=== PATIENT | male | born 1940 | race Caucasian/White ===

== ENCOUNTER 2018-04-25 13:51 | Outpatient (CLI) | payer MEDICARE ==
--- NOTE | 2018-04-25 15:49 | MRI ---
MRI LUMBAR SPINE WITHOUT CONTRAST: COMPARISON: 10/10/16. CORRELATION: Lumbar spine radiograph series 01/25/17. TECHNIQUE: MRI lumbar spine is performed without intravenous Gadolinium administration. Multisequential, multip lanar imaging is performed. FINDINGS: Intrinsic T1 and T2 hypointensity involving the L1 and L2 vertebral bodies compatible with vertebropl asty change. Mild loss of vertebral body height at L1 and L2. No significant retropulsion. No sign ificant edema on the sagittal STIR sequence. There is appropriate signal intensity of the L3, L4, an d L5 vertebral body levels as well as the visualized sacrum. Symmetric signal intensity of the psoas muscles. Appropriate signal intensity in the visualized javy d organs. Conus medullaris terminates at the upper aspect of L1. T12-L1: Adequate disk hydration. No significant central canal stenosis or foraminal narrowing. L1-L2: Adequate disk hydration. No significant central canal stenosis or foraminal narrowing. L2-L3: Adequate disk hydration. No significant central canal stenosis. The neural foramen are avila nt. Mild ligamentum flavum thickening and facet hypertrophy. L3-L4: Adequate disk hydration. No significant central canal stenosis. Neural foramen are patent. L4-L5: Adequate disk hydration. There is a generalized disk bulge, ligamentum flavum thickening, an d facet hypertrophy which results in mild to moderate central canal stenosis. The degree of central canal stenosis has not changed when compared to the previous examination. Right neural foramen is pa tent. Minimal left neural foraminal narrowing. L5-S1: Central disk protrusion abuts the thecal sac. There is minimal encroachment upon both subart icular zones. No significant obscuration or other traversing S1 nerve root. There is mild central c anal stenosis. Mild bilateral foraminal narrowing. The overall degree of degenerative change has no t progressed when compared to the prior exam. S1-S2: No significant central canal stenosis or foraminal narrowing. Note, there appears to be partial lumbarization of S1. IMPRESSION: 1. 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 2. Vertebroplasty change at L1-L2 compatible with recent radiograph performed in January of 2017. POS: [facility]
== END 2018-04-25 13:52 | disposition home or self-care (01) ==
LOC: BICMRI 13:51
PROVIDERS: ATTEND Anesthesiology Pain Medicine
DX: M47.26 Other spondylosis with radiculopathy, lumbar region (principal); Z98.890 Other specified postprocedural states
CPT/HCPCS: 72148

== ENCOUNTER 2018-12-04 12:06 | Outpatient (CLI) | payer MEDICARE ==
--- NOTE | 2018-12-04 15:49 | PET ---
EXAM: PET/CT HISTORY: Melanoma face, right cheek. Exam requested for initial staging TECHNIQUE: PET scanning with CT attenuation correction was performed from the vertex to the feet following the i ntravenous administration of 13 millicuries [id number]. COMPARISON: None. CORRELATION: None FINDINGS: No mandie hypermetabolism is seen in the neck, chest, axillae, abdomen, pelvis, inguinal, femoral and popliteal regions. No hypermetabolic pulmonary nodules, liver, adrenal or skeletal lesions are seen. There is physiologic activity in the GI and tracts and the visualized portions of the brain. The CT scan used for attenuation correction demonstrates no evidence of pleural effusions or ascites. There are changes of prostatic enlargement and colonic diverticulosis. IMPRESSION: No evidence of metastatic disease.
== END 2018-12-04 12:07 | disposition home or self-care (01) ==
LOC: PET 12:06
PROVIDERS: ATTEND Internal Medicine Hematology & Oncology
DX: C43.39 Malignant melanoma of other parts of face (principal)
CPT/HCPCS: 78816; A9552

== ENCOUNTER 2018-12-17 12:57 | Outpatient (CLI) | payer MEDICARE ==
--- NOTE | 2018-12-17 14:45 | MRI ---
MRI LUMBAR SPINE NONCONTRAST: HISTORY: Neurogenic claudication. Lumbar stenosis. Previous injury to the back. Previous L1 and L2 compression fracture. Melanoma. COMPARISON: 04/25/2018 FINDINGS: Based on the previous examination, the spine will be labeled such that the vertebroplasty has occurre d at L1 and L2. There is stable marrow signal intensity in the lumbar spine. No evidence of hyperintensity on the STIR images to suggest vertebral body edema or ligamentous injury. There have b een no interval fractures. Stable vertebral body heights. Symmetric signal intensity of the paraspinal muscles. Appropriate signal intensity of the visualized solid organs. Conus medullaris terminates at the mid L1 level T12-L1:No significant central canal stenosis or neural foraminal narrowing L1-L2:Mild generalized disc bulge without significant central canal stenosis. Mild bilateral foramina l narrowing L2-L3:Adequate disc hydration. Minimal generalized disc bulge. Questionable small annular fissure in the left subarticular region. No significant central canal stenosis. Mild ligament flavum thickening and facet hypertrophy. Mild bilateral neural foraminal narrowing. L3-L4:Adequate disc hydration. No significant central canal stenosis. Neural foramina are patent bila terally L4-L5:Adequate disc hydration. Generalized disc bulge, ligament flavum thickening and facet hypertrop hy result in moderate central canal stenosis. Right neural foramen is patent. Mild left neural foraminal narrowing L5-S1:Desiccation with mild loss of disc space height. There is a central/right subarticular disc pro trusion. Small annular tear suspected in the disc, along the right subarticular zone. This annular tear appears to be adjacent to the traversing right S1 nerve root. IMPRESSION: 1. Stable vertebroplasty change at L1 and L2. 2. Multilevel degenerative changes of the lumbar spine. There appears to be interval development of a n annular fissure at L5-S1 and L2-L3 as described above. Annular fissure does appear to abut the traversing right S1 nerve root. Transcribed Date/Time: 12/17/2018 3:05 PM
== END 2018-12-17 12:58 | disposition home or self-care (01) ==
LOC: SCSMRI 12:57
PROVIDERS: ATTEND Anesthesiology Pain Medicine
DX: M48.062 Spinal stenosis, lumbar region with neurogenic claudication (principal); M47.816 Spondylosis without myelopathy or radiculopathy, lumbar region; Z98.890 Other specified postprocedural states
CPT/HCPCS: 72148

== ENCOUNTER 2020-01-29 07:30 | Outpatient (CLI) | payer MEDICARE, OTHER ==
[2020-01-30 13:07] LABS: SARS-CoV-2 MS2 Positive; SARS-CoV-2 N Gene Negative; SARS-CoV-2 S Gene Negative; SARS-CoV-2 orf1ab Negative
== END 2020-01-29 07:31 | disposition home or self-care (01) ==
LOC: LABBT 07:30
PROVIDERS: ATTEND Anesthesiology Pain Medicine
DX: Z01.818 Encounter for other preprocedural examination (principal); Z11.59 Encounter for screening for other viral diseases; M54.16 Radiculopathy, lumbar region; M96.1 Postlaminectomy syndrome, not elsewhere classified; G89.29 Other chronic pain
CPT/HCPCS: 87635; U0003

== ENCOUNTER 2020-02-02 11:51 | Day surgery (SDC) | payer MEDICARE ==
[2020-01-28 09:50] VITALS: BMI 28.0
[2020-02-02] MEDS ORDERED: CEFAZOLIN 1 GM VIAL ONE (12:10)
[2020-02-02] MEDS ORDERED: Sodium Chloride 0.9% 100 ML ONE (12:10)
[2020-02-02] MEDS ORDERED: Propofol 1,000 MG/100 ML VIAL IV ONE (12:21)
[2020-02-02] MEDS ORDERED: Fentanyl 100 MCG/2 ML VIAL ONE (12:21)
[2020-02-02] MEDS ORDERED: Lidocaine 1% w/Epinephrine 1:100K 20 ML VIAL ONE (13:30)
[2020-02-02] MEDS ORDERED: Bupivacaine PF 0.5% 30 ML VIAL ONE (13:30)
[2020-02-02] MEDS ORDERED: Morphine 2 MG/ML SYRINGE ONE (15:37)
--- NOTE | 2020-02-02 16:36 | RAD ---
Thoracic spine intraoperative fluoroscopy one view HISTORY: Dorsal column stimulator placement. FINDINGS: Intraoperative fluoroscopy was provided for dorsal column stimulator placement as performed by Dr. Zacarias. Spot frontal image shows 2 metallic leads overlying the midline central spinal canal at the level of the mid thoracic spine. Fluoroscopy time 49 seconds.
--- NOTE | 2020-02-02 21:15 | OP ---
DATE OF PROCEDURE: 02/02/2020 PREOPERATIVE DIAGNOSES: 1. Postlaminectomy syndrome. 2. Chronic lumbar radiculopathy. 3. Chronic pain. POSTOPERATIVE DIAGNOSES: 1. Postlaminectomy syndrome. 2. Chronic lumbar radiculopathy. 3. Chronic pain. PROCEDURES: 1. Implantation of a right spinal cord stimulation electrode array, eight contacts. 2. Implantation of a left spinal cord stimulation electrode array, eight contacts. 3. Implantation of internal pulse generator. 4. Intraoperative programming. 5. Implantation of programming of internal pulse generator. ANESTHESIA: TIVA. COMPLICATIONS: None. BLOOD LOSS: Less than 20 mL. DESCRIPTION OF PROCEDURE: Risks and benefits were discussed. Informed consent was obtained, was taken to the OR, prepped and draped in a standard fashion, prone position, Hibiclens prep, fluoroscopic guidance to identify the thoracolumbar interspaced, L1-L2 interspace chosen. Incision carried down using blunt dissection to the supraspinous ligament L1-L3, supplied Touhy needle, loss of resistance technique, one pass, no paresthesia, CSF, or heme. Using a left and right paramedian approach, electrodes were then placed in the epidural space over the dorsal columns with the most cephalad electrode at the superior endplate of T7 and a second electrode placed to allow parallel with the first, intraoperative programming, achieved appropriate back and bilateral leg stimulation concordant and overlapping with the patient's pain pattern. Multiple electrode array, pulse width and frequencies were utilized. Attention was then turned to the right buttocks. After adequate local anesthesia, incision was made down to the fascia. Fascia was undermined to make a pocket. The IPG was placed in the pocket. Tunneling was accomplished between incisions using the straw tunneler. Leads were passed through the straw. Straw was removed. Leads were connected to the IPG. Set screws were tightened using the ratcheted screwdriver and IPG was placed in the pocket, riding side out. All counts were correct x2. Closure was accomplished in layers using 0 Vicryl, 2-0 Vicryl, and 4-0 Rapide for the skin. Dermabond was also used for the skin. There were no complications. The patient tolerated the procedure well. Job ID: [id number]
--- NOTE | 2020-02-03 18:11 | EKG ---
Test Reason : PREOP Blood Pressure : / mmHG Vent. Rate : 071 BPM Atrial Rate : 071 BPM P-R Int : 148 ms QRS Dur : 126 ms QT Int : 420 ms P-R-T Axes : 045 013 010 degrees QTc Int : 456 ms Normal sinus rhythm Right bundle branch block Abnormal ECG When compared with ECG of 15-JUL-2007 16:55, Premature atrial complexes are no longer Present Confirmed by BHUMI BECK (2) on 02/03/2020 6:10:50 PM Referred By: DIMITRIOS Confirmed By:BHUMI BECK
== END 2020-02-02 16:35 | disposition home or self-care (01) ==
LOC: SDC 11:51
PROVIDERS: ATTEND Anesthesiology Pain Medicine
PROC: 0JH70DZ Insertion of Multiple Array Stimulator Generator into Back Subcutaneous Tissue and Fascia, Open Approach (ICD-10-PCS; principal; 2020-02-02)
PROC: 00HU3MZ Insertion of Neurostimulator Lead into Spinal Canal, Percutaneous Approach (ICD-10-PCS; 2020-02-02)
DX: M96.1 Postlaminectomy syndrome, not elsewhere classified (principal); M54.16 Radiculopathy, lumbar region; G89.4 Chronic pain syndrome; E11.9 Type 2 diabetes mellitus without complications; I10 Essential (primary) hypertension; E03.9 Hypothyroidism, unspecified; F32.9 Major depressive disorder, single episode, unspecified; N40.0 Benign prostatic hyperplasia without lower urinary tract symptoms; E78.5 Hyperlipidemia, unspecified; F41.9 Anxiety disorder, unspecified; Z79.84 Long term (current) use of oral hypoglycemic drugs; Z79.899 Other long term (current) drug therapy
CPT/HCPCS: 63650 ×2; 63685; 72020; 76000; 93005; C1767; C1778; 93010; J0690; J2270; J2704; J3010; J3490; S0020

== ENCOUNTER 2020-05-26 13:32 | Outpatient (CLI) | payer MEDICARE ==
--- NOTE | 2020-05-26 15:37 | CT ---
Neck CT: 05/26/2020 COMPARISON: None HISTORY: Mass on the right "under the chin" TECHNIQUE: Axial CT imaging obtained at 3 mm intervals through the neck with IV contrast. Coronal and sagittal reformatted imaging obtained. FINDINGS: Partially imaged brain parenchyma grossly unremarkable. Imaged paranasal sinuses and mastoid air cells well-aerated. Visualized lung apices unremarkable. The retroantral fat and the parapharyngeal fat appears clear bilaterally. A right scleral band is pre sent. The parotid glands and the submandibular glands appear unremarkable. The tonsillar pillars, the epigl ottis and preepiglottic fat, the hyoid bone, the thyroid cartilage, the cricoid cartilage, the thyroid gland, and the level of the glottis appears unremarkable. Dental amalgam limits detailed assessment of the oral cavity. There is a needle cap marking the area of palpable concern which is in a midline location anterior to the hyoid bone and thyroid cartilage. No mass, fluid collection, or enlarged lymph node is seen in the area of palpable concern. Vascular structures of the neck appear patent. No enlarged lymph nodes are noted within the neck on e ither side. Review of the osseous structures demonstrates no worrisome lytic or blastic bone lesion. IMPRESSION: No CT abnormality is seen in the area of palpable concern marked on the patient's skin.
== END 2020-05-26 13:33 | disposition home or self-care (01) ==
LOC: BICCT 13:32
PROVIDERS: ATTEND Otolaryngology Otolaryngic Allergy
DX: R22.1 Localized swelling, mass and lump, neck (principal)
CPT/HCPCS: 70491

== ENCOUNTER 2020-08-25 09:42 | Outpatient (CLI) | payer MEDICARE ==
--- NOTE | 2020-08-25 10:43 | CT ---
CTA Angio Chest W WO Con 08/25/2020 9:45 AM Indication: 80-year-old male with shortness of breath and history of DVT Technique: Multiple CTA images were obtained of the thorax with IV contrast. 3-D rendering: MIP neela nstructed images were created and reviewed. Comparison: Prior PET/CT dated December 04, 2018 Findings: Pulmonary arteries: No central or segmental pulmonary embolus is evident. Heart and Aorta: Normal appearing. Mediastinum:Normal appearing. No enlarged lymph nodes. Lungs:There is persistent areas of subsegmental volume loss involving both lung bases, right greater than left Pleural space: Clear. Upper Abdomen: There is partial resolution right hepatic lobe cyst. Osseous Structures: There is partial visualization of a dorsal column stimulator. There is vertebrop lasty change at T10. Soft tissues:No abnormality. Other findings:None. Impression: No central or segmental pulmonary embolus.
== END 2020-08-25 09:43 | disposition home or self-care (01) ==
LOC: CT 09:42
PROVIDERS: ATTEND Nurse Practitioner Family
DX: I82.432 Acute embolism and thrombosis of left popliteal vein (principal); R06.02 Shortness of breath
CPT/HCPCS: 71275

== ENCOUNTER 2020-09-26 14:51 | Outpatient (CLI) | payer MEDICARE ==
--- NOTE | 2020-09-26 15:29 | RAD ---
EXAM: Chest 2 views: HISTORY: Dyspnea COMPARISON: CTA chest 08/25/2020 FINDINGS: There is a normal-sized cardiomediastinal silhouette. There is no evidence of consolidation, mass, or pleural effusion. A spinal stimulation device is seen in the midthoracic spine. Vertebroplasty cement and multiple wedge compression deformities are seen in the spine. IMPRESSION: No evidence of acute cardiopulmonary disease
== END 2020-09-26 14:52 | disposition home or self-care (01) ==
LOC: BICRAD 14:51
PROVIDERS: ATTEND Internal Medicine Pulmonary Disease
DX: R06.00 Dyspnea, unspecified (principal)
CPT/HCPCS: 71046

== ENCOUNTER 2020-11-02 21:10 | Inpatient (IN) | payer MEDICARE ==
[~2020-11-02 21:10] MED LIST: Iopamidol-370 76% 500 ML 1 ML ONE
[2020-11-02 21:43] LABS: #Basophils 0.1 thou/uL (0.0-0.2); #Eosinphils 0.3 thou/uL (0.0-0.7); #Lymphocytes 3.1 thou/uL (1.20-3.40); #Neutrophils 8.7 thou/uL (1.40-6.50); %Basophils 0.4 % (0.0-1.0); %Eosinophils 2.4 % (0.0-10.0); %Lymphocytes 23.4 % (21.0-51.0); %Monocytes 7.4 % (0.0-10.0); %Neutrophils 66.4 % (42.0-75.0); Hemoglobin 14.7 g/dL (14.0-18.0); Mean Corpuscular HGB CONC 33.3 g/dL (32.0-36.0); Mean Corpuscular Hemoglobin 31.4 pg (27.0-31.0); Mean Corpuscular Volume 94.3 fL (78.0-98.0); Mean Platelet Volume 8.6 fL (7.4-10.4); Platelet Count 187 thou/uL (130-400); Red Blood Cell (RBC) Count 4.68 mill/uL (4.70-6.10); White Blood Cell (WBC) Count 13.1 thou/uL (4.8-10.8)
[2020-11-02 22:21] LABS: INR-International Normal Ratio 1.1; PTT 33.6 sec (22.9-36.1); Prothrombin Time 14.8 sec (12.0-14.7)
[2020-11-02 22:35] LABS: ALT (SGPT) 18 U/L (8-55); AST (SGOT) 17 U/L (5-34); Albumin 3.2 g/dL (3.4-4.8); Alkaline Phosphatase 61 U/L (40-110); Anion Gap 11 mmol/L (10-20); BUN (Urea Nitrogen) 20 mg/dL (8.4-25.7); Bilirubin, Total 0.3 mg/dL (0.2-1.2); Calc. Creatinine Clearance 0 mL/min (70-130); Calcium 8.3 mg/dL (7.8-10.44); Carbon Dioxide 27 mmol/L (23-31); Chloride 106 mmol/L (98-107); Globulin 2.9 g/dL (2.4-3.5); Glucose 249 mg/dL (83-110); Potassium 4.3 mmol/L (3.5-5.1); Protein, Total 6.1 g/dL (5.8-8.1); Sodium 140 mmol/L (136-145)
[2020-11-02] MEDS ORDERED: Acetaminophen 325 MG TAB PO PRN (23:37)
[2020-11-02] MEDS ORDERED: Ondansetron PF 4 MG/2 ML Vial IVP PRN (23:37)
[2020-11-02] MEDS ORDERED: Ondansetron ODT 4 MG TAB PO PRN (23:37)
[2020-11-02] MEDS ORDERED: Dextrose 5% in Water 1,000 ML IV PRN (23:41)
[2020-11-02] MEDS ORDERED: Dextrose 50% Abboject 50 ML SYRINGE SLOW IVP PRN (23:41)
[2020-11-03 02:04] LABS: Bacteria/HPF 4+ HPF (None Seen); Bilirubin Negative (Negative); Blood, Urine 1+ (Negative); Clarity Extra Turbid (Clear); Glucose, Urine (Dipstick) 100 mg/dL (Negative); Ketone, Urine Negative (Negative); Leukocyte 500 Leu/uL (Negative); Nitrite Negative (Negative); Protein, Urine (Dipstick) 70 mg/dL (Neg-Trace); Squamous Epithelial None Seen HPF (0-3); Urobilinogen Normal mg/dL (Less than 2); WBC/HPF Greater than 50 HPF (0-3)
[2020-11-03 02:05] LABS: Specific Gravity, Urine 1.054 (1.002-1.036)
[2020-11-03 02:06] LABS: Urine Culture Reflex Yes Yes
[2020-11-03] MEDS ORDERED: Sodium Chloride 0.9% 500 ML IV SCH (03:00)
[2020-11-03 03:05] VITALS: BMI 28.7
[2020-11-03] MEDS: cefTRIAXone\\ROCEPHIN 1 GM in Sodium Chloride 0.9% 100 ML IVPB SCH (03:53)
[2020-11-03 04:56] LABS: #Basophils 0.1 thou/uL (0.0-0.2); #Eosinphils 0.4 thou/uL (0.0-0.7); #Lymphocytes 2.5 thou/uL (1.20-3.40); #Monocytes 0.9 thou/uL (0.11-0.59); #Neutrophils 7.8 thou/uL (1.40-6.50); %Basophils 0.5 % (0.0-1.0); %Eosinophils 3.6 % (0.0-10.0); %Lymphocytes 21.3 % (21.0-51.0); %Neutrophils 66.6 % (42.0-75.0); Hemoglobin 12.8 g/dL (14.0-18.0); Mean Corpuscular Hemoglobin 31.8 pg (27.0-31.0); Mean Corpuscular Volume 93.6 fL (78.0-98.0); Mean Platelet Volume 8.3 fL (7.4-10.4); Platelet Count 193 thou/uL (130-400); Red Blood Cell (RBC) Count 4.02 mill/uL (4.70-6.10); White Blood Cell (WBC) Count 11.7 thou/uL (4.8-10.8)
[2020-11-03 05:15] LABS: SARS-CoV-2 PCR by NAA Not Detected (NotDetected)
[2020-11-03 05:21] LABS: Anion Gap 11 mmol/L (10-20); BUN (Urea Nitrogen) 20 mg/dL (8.4-25.7); Calc. Creatinine Clearance 74 mL/min (70-130); Calcium 8.7 mg/dL (7.8-10.44); Carbon Dioxide 26 mmol/L (23-31); Chloride 106 mmol/L (98-107); Cholesterol 129 mg/dl (< 200 Desired); Glucose 204 mg/dL (83-110); HDL Cholesterol 26 mg/dL (>60 Neg Risk); LDL Cholesterol, Calculated 69 mg/dL; Potassium 3.8 mmol/L (3.5-5.1); Sodium 139 mmol/L (136-145); Triglycerides 168 mg/dL (Less than 150)
[2020-11-03] MEDS: HumaLOG 300 UNITS/3 ML VIAL SC PRN ×4 (06:37→22:02)
[2020-11-03] MEDS ORDERED: Aspirin 81 mg Enteric Coated Tablet PO SCH (09:00)
[2020-11-03] MEDS ORDERED: Enoxaparin Sodium 40 MG/0.4 ML SYRINGE SC SCH (09:00)
[2020-11-03] MEDS ORDERED: Aspirin Chewable 81 MG TAB PO SCH ×2 (11:00→13:30)
[2020-11-03] MEDS: Sodium Chloride 0.9% 1,000 ML IV SCH (17:42)
[2020-11-03] MEDS: Apixaban 5 MG TAB PO SCH (21:58)
[2020-11-03] MEDS: Finasteride 5 MG TAB PO SCH (22:00)
[2020-11-03] MEDS: Atorvastatin Calcium 40 MG TAB PO SCH (22:00)
[2020-11-03] MEDS: Doxazosin Mesylate 4 MG TAB PO SCH (22:00)
[2020-11-03] MEDS: Melatonin 3 MG TAB PO PRN (22:00)
[2020-11-03] MEDS: Latanoprost 0.005% Ophth Soln 2.5 ml Bottle EA EYE SCH (22:01)
[2020-11-04] MEDS: cefTRIAXone\\ROCEPHIN 1 GM in Sodium Chloride 0.9% 100 ML IVPB SCH (03:52)
[2020-11-04 05:38] LABS: #Basophils 0.1 thou/uL (0.0-0.2); #Eosinphils 0.6 thou/uL (0.0-0.7); #Lymphocytes 2.6 thou/uL (1.20-3.40); #Neutrophils 7.5 thou/uL (1.40-6.50); %Basophils 0.7 % (0.0-1.0); %Eosinophils 5.1 % (0.0-10.0); %Lymphocytes 21.9 % (21.0-51.0); %Monocytes 8.4 % (0.0-10.0); Hemoglobin 12.6 g/dL (14.0-18.0); Mean Corpuscular HGB CONC 32.4 g/dL (32.0-36.0); Mean Corpuscular Hemoglobin 30.4 pg (27.0-31.0); Mean Corpuscular Volume 93.8 fL (78.0-98.0); Mean Platelet Volume 8.3 fL (7.4-10.4); Platelet Count 189 thou/uL (130-400); RBC Distribution Width 13.2 % (11.5-14.5); Red Blood Cell (RBC) Count 4.15 mill/uL (4.70-6.10); White Blood Cell (WBC) Count 11.7 thou/uL (4.8-10.8)
[2020-11-04 05:58] LABS: Anion Gap 9 mmol/L (10-20); BUN (Urea Nitrogen) 17 mg/dL (8.4-25.7); Calc. Creatinine Clearance 87 mL/min (70-130); Calcium 8.4 mg/dL (7.8-10.44); Carbon Dioxide 25 mmol/L (23-31); Chloride 109 mmol/L (98-107); Glucose 234 mg/dL (83-110); Potassium 3.8 mmol/L (3.5-5.1); Sodium 139 mmol/L (136-145)
[2020-11-04] MEDS: Levothyroxine Sodium 75 MCG TAB PO SCH (06:45)
[2020-11-04] MEDS: HumaLOG 300 UNITS/3 ML VIAL SC PRN ×4 (06:46→21:14)
[2020-11-04] MEDS ORDERED: Aspirin 325 MG TAB PO SCH (09:00)
[2020-11-04] MEDS: Aspirin 81 mg Enteric Coated Tablet PO SCH (09:26)
[2020-11-04] MEDS: Apixaban 5 MG TAB PO SCH ×2 (09:27→21:13)
[2020-11-04] MEDS ORDERED: glipiZIDE 5 MG TAB PO SCH (12:30)
[2020-11-04] MEDS ORDERED: Metoprolol Tartrate 25 MG TAB PO SCH (14:00)
[2020-11-04] MEDS: AMPicillin 1 GM in Sodium Chloride 0.9% 100 ML IVPB SCH ×2 (15:10→21:10)
[2020-11-04] MEDS: Sodium Chloride 0.9% 1,000 ML IV SCH (15:20)
[2020-11-04] MEDS: glipiZIDE 10 MG TAB PO SCH (17:03)
[2020-11-04] MEDS: Melatonin 3 MG TAB PO PRN (21:10)
[2020-11-04] MEDS: Latanoprost 0.005% Ophth Soln 2.5 ml Bottle EA EYE SCH (21:11)
[2020-11-04] MEDS: Metoprolol Tartrate 25 MG TAB PO SCH (21:12)
[2020-11-04] MEDS: Atorvastatin Calcium 40 MG TAB PO SCH (21:12)
[2020-11-04] MEDS: Finasteride 5 MG TAB PO SCH (21:12)
[2020-11-04] MEDS: Doxazosin Mesylate 4 MG TAB PO SCH (21:17)
[2020-11-05] MEDS: AMPicillin 1 GM in Sodium Chloride 0.9% 100 ML IVPB SCH ×4 (02:36→20:44)
[2020-11-05 04:58] LABS: #Eosinphils 0.6 thou/uL (0.0-0.7); #Lymphocytes 2.4 thou/uL (1.20-3.40); #Neutrophils 6.6 thou/uL (1.40-6.50); %Basophils 0.3 % (0.0-1.0); %Lymphocytes 22.6 % (21.0-51.0); %Monocytes 9.1 % (0.0-10.0); Mean Corpuscular HGB CONC 32.9 g/dL (32.0-36.0); Mean Corpuscular Hemoglobin 30.9 pg (27.0-31.0); Mean Corpuscular Volume 93.8 fL (78.0-98.0); Mean Platelet Volume 8.4 fL (7.4-10.4); Platelet Count 178 thou/uL (130-400); White Blood Cell (WBC) Count 10.7 thou/uL (4.8-10.8)
[2020-11-05 05:16] LABS: Anion Gap 9 mmol/L (10-20); BUN (Urea Nitrogen) 14 mg/dL (8.4-25.7); Calc. Creatinine Clearance 84 mL/min (70-130); Calcium 8.1 mg/dL (7.8-10.44); Carbon Dioxide 23 mmol/L (23-31); Chloride 111 mmol/L (98-107); Glucose 203 mg/dL (83-110); Potassium 4.3 mmol/L (3.5-5.1); Sodium 139 mmol/L (136-145)
[2020-11-05] MEDS: HumaLOG 300 UNITS/3 ML VIAL SC PRN ×4 (06:12→22:35)
[2020-11-05] MEDS: Levothyroxine Sodium 75 MCG TAB PO SCH (06:13)
[2020-11-05] MEDS: Metoprolol Tartrate 25 MG TAB PO SCH ×2 (09:13→20:41)
[2020-11-05] MEDS: Apixaban 5 MG TAB PO SCH ×2 (09:13→20:42)
[2020-11-05] MEDS: Aspirin 81 mg Enteric Coated Tablet PO SCH (09:15)
[2020-11-05] MEDS: glipiZIDE 10 MG TAB PO SCH ×2 (09:15→17:15)
[2020-11-05] MEDS: Doxazosin Mesylate 4 MG TAB PO SCH (20:42)
[2020-11-05] MEDS: Melatonin 3 MG TAB PO PRN (20:42)
[2020-11-05] MEDS: Atorvastatin Calcium 40 MG TAB PO SCH (20:42)
[2020-11-05] MEDS: Finasteride 5 MG TAB PO SCH (20:42)
[2020-11-05] MEDS: Latanoprost 0.005% Ophth Soln 2.5 ml Bottle EA EYE SCH (20:44)
[2020-11-06] MEDS: AMPicillin 1 GM in Sodium Chloride 0.9% 100 ML IVPB SCH ×3 (02:25→14:37)
[2020-11-06] MEDS: HumaLOG 300 UNITS/3 ML VIAL SC PRN ×2 (05:54→11:14)
[2020-11-06] MEDS: Levothyroxine Sodium 75 MCG TAB PO SCH (05:54)
[2020-11-06] MEDS: Metoprolol Tartrate 25 MG TAB PO SCH (08:33)
[2020-11-06] MEDS: glipiZIDE 10 MG TAB PO SCH (08:33)
[2020-11-06] MEDS: Aspirin 81 mg Enteric Coated Tablet PO SCH (08:33)
[2020-11-06] MEDS: Apixaban 5 MG TAB PO SCH (08:34)
[2020-11-06] MEDS ORDERED: Lantus 1000 UNITS/10 ML VIAL SC SCH (09:00)
[2020-11-06 12:07] VITALS: BP 132/63; TEMP 98.1
== END 2020-11-06 15:53 | DRG 65 ==
LOC: ERS 21:10 → 2SE 22:16
PROVIDERS: ADMIT Student in an Organized Health Care Education/Training Program; ATTEND Internal Medicine
DX: I63.9 Cerebral infarction, unspecified (principal); N39.0 Urinary tract infection, site not specified; G81.91 Hemiplegia, unspecified affecting right dominant side; Z20.822 Contact with and (suspected) exposure to COVID-19; Z66 Do not resuscitate; I82.432 Acute embolism and thrombosis of left popliteal vein; I82.412 Acute embolism and thrombosis of left femoral vein; E11.9 Type 2 diabetes mellitus without complications; R29.702 NIHSS score 2; R47.1 Dysarthria and anarthria; R29.810 Facial weakness; R47.81 Slurred speech; N40.0 Benign prostatic hyperplasia without lower urinary tract symptoms; B95.2 Enterococcus as the cause of diseases classified elsewhere; Z90.49 Acquired absence of other specified parts of digestive tract; Z79.01 Long term (current) use of anticoagulants; Z79.84 Long term (current) use of oral hypoglycemic drugs; Z79.899 Other long term (current) drug therapy
CPT/HCPCS: 36415; 36416; 70450; 70496; 70498; 70551; 71045; 80048; 80053; 80061; 81001; 83735; 84484; 85025; 85610; 85730; 87077; 87086; 87186; 87635; 93005; 93306; 94760; J0290; J0696; J1815; J3490; Q9967; U0003; U0005

== ENCOUNTER 2021-12-17 03:19 | Inpatient (IN) | payer MEDICARE ==
[2021-12-17 03:51] LABS: #Basophils 0.1 thou/uL (0.0-0.2); #Eosinphils 0.3 thou/uL (0.0-0.7); #Lymphocytes 2.3 thou/uL (1.20-3.40); #Monocytes 1.3 thou/uL (0.11-0.59); #Neutrophils 15.7 thou/uL (1.40-6.50); %Basophils 0.4 % (0.0-1.0); %Eosinophils 1.3 % (0.0-10.0); %Lymphocytes 11.8 % (21.0-51.0); %Monocytes 6.8 % (0.0-10.0); %Neutrophils 79.7 % (42.0-75.0); Hemoglobin 14.7 g/dL (14.0-18.0); Mean Corpuscular HGB CONC 34.3 g/dL (32.0-36.0); Mean Corpuscular Hemoglobin 32.7 pg (27.0-31.0); Mean Corpuscular Volume 95.1 fL (78.0-98.0); Mean Platelet Volume 9.1 fL (7.4-10.4); Platelet Count 184 thou/uL (130-400); RBC Distribution Width 13.2 % (11.5-14.5); White Blood Cell (WBC) Count 19.7 thou/uL (4.8-10.8)
[2021-12-17 04:11] LABS: ALT (SGPT) 24 U/L (8-55); AST (SGOT) 25 U/L (5-34); Albumin 3.6 g/dL (3.4-4.8); Alkaline Phosphatase 63 U/L (40-110); Anion Gap 21 mmol/L (10-20); BUN (Urea Nitrogen) 33 mg/dL (8.4-25.7); Bilirubin, Total 0.9 mg/dL (0.2-1.2); Calc. Creatinine Clearance 0 mL/min (70-130); Calcium 9.3 mg/dL (7.8-10.44); Carbon Dioxide 21 mmol/L (23-31); Chloride 100 mmol/L (98-107); Globulin 3.3 g/dL (2.4-3.5); Glucose 262 mg/dL (83-110); Magnesium 1.4 mg/dL (1.6-2.6); Potassium 4.3 mmol/L (3.5-5.1); Protein, Total 6.9 g/dL (5.8-8.1); Sodium 138 mmol/L (136-145)
[2021-12-17] MEDS ORDERED: Amiodarone 150 MG/3 ML VIAL ONE (05:07)
[2021-12-17] MEDS ORDERED: Amiodarone 450 MG, Admixture Fee 1 EACH in Dextrose 5% in Water 250 ML IVPB SCH (05:15)
[2021-12-17] MEDS ORDERED: Acetaminophen 325 MG TAB PO PRN (06:09)
[2021-12-17] MEDS ORDERED: Dextrose 5% in Water 1,000 ML IV PRN (06:09)
[2021-12-17] MEDS ORDERED: HumaLOG 300 UNITS/3 ML VIAL SC PRN ×2 (06:09)
[2021-12-17] MEDS ORDERED: Ondansetron PF 4 MG/2 ML Vial IVP PRN (06:09)
[2021-12-17] MEDS ORDERED: Dextrose 50% Abboject 50 ML SYRINGE SLOW IVP PRN (06:09)
[2021-12-17] MEDS ORDERED: Lactated Ringer's 1,000 ML IV SCH (06:15)
[2021-12-17] MEDS ORDERED: Magnesium 2 GM/50 ML(in water) 2 GM in Premix Bag 1 BAG IVPB SCH (06:30)
[2021-12-17 06:34] LABS: Hemoglobin A1c 6.1 % (4.0-6.0)
[2021-12-17 07:00] LABS: Free T4 (Free Thyroxine) 1.07 ng/dL (0.70-1.48)
[2021-12-17 07:30] LABS: SARS-CoV-2 NAA Rapid Test Not Detected (NotDetected)
[2021-12-17 08:00] LABS: Lactic Acid 2.7 mmol/L (0.5-2.2)
[2021-12-17] MEDS: Famotidine 20 MG TAB PO SCH (08:12)
[2021-12-17] MEDS: Apixaban 5 MG TAB PO SCH ×2 (08:12→20:55)
[2021-12-17] MEDS ORDERED: Metoprolol Tartrate 25 MG TAB PO SCH (09:00)
[2021-12-17 11:30] LABS: Bilirubin Negative (Negative); Blood, Urine 1+ (Negative); Clarity Turbid (Clear); Glucose, Urine (Dipstick) Normal (Negative); Ketone, Urine Trace mg/dL (Negative); Leukocyte 500 Leu/uL (Negative); Nitrite Negative (Negative); Protein, Urine (Dipstick) 20 mg/dL (Neg-Trace); Specific Gravity, Urine 1.018 (1.002-1.036); Squamous Epithelial 0-3 HPF (0-3); Urobilinogen Normal mg/dL (Less than 2); WBC/HPF Greater than 50 HPF (0-3); pH, Urine 5.5 (5.0-9.0)
[2021-12-17 11:31] LABS: Bacteria/HPF 1+ HPF (None Seen)
[2021-12-17 11:32] LABS: Urine Culture Reflex Yes Yes
[2021-12-17] MEDS ORDERED: Atorvastatin Calcium 40 MG TAB PO SCH (21:00)
[2021-12-17] MEDS ORDERED: Levothyroxine Sodium 75 MCG TAB PO SCH (21:00)
[2021-12-18] MEDS: Dronedarone HCl 400 MG TAB PO SCH ×2 (08:15→16:15)
[2021-12-18] MEDS: Famotidine 20 MG TAB PO SCH (08:15)
[2021-12-18] MEDS: Apixaban 5 MG TAB PO SCH (08:15)
[2021-12-18] MEDS ORDERED: Aspirin 81 mg Enteric Coated Tablet PO SCH (09:00)
[2021-12-18 09:11] LABS: Band 26 % (5-11); Burr Cells SLIGHT = 2-5 cells (100X) (0-1/hpf); Eosinophils 3 % (0-10); Hemoglobin 12.6 g/dL (14.0-18.0); Lymphocytes 12 % (21-51); MDiff Complete? YES; Mean Corpuscular HGB CONC 33.2 g/dL (32.0-36.0); Mean Corpuscular Hemoglobin 31.9 pg (27.0-31.0); Mean Corpuscular Volume 96.1 fL (78.0-98.0); Mean Platelet Volume 8.7 fL (7.4-10.4); Monocytes 8 % (0-10); Neutrophil 41 % (42-75); Ovalocytes SLIGHT = 2-5 cells (100X) (0-1/hpf); Platelet Count 156 thou/uL (130-400); Platelet Morphology Comment Appears Adequate; Polychromasia SLIGHT = 2-3 cells (100X) (0-2/hpf); RBC Distribution Width 13.3 % (11.5-14.5); Reactive Lymphocytes 10 % (0-10); Red Blood Cell (RBC) Count 3.94 mill/uL (4.70-6.10)
[2021-12-18 09:47] LABS: Anion Gap 13 mmol/L (10-20); BUN (Urea Nitrogen) 31 mg/dL (8.4-25.7); Calc. Creatinine Clearance 57 mL/min (70-130); Calcium 7.6 mg/dL (7.8-10.44); Carbon Dioxide 21 mmol/L (23-31); Chloride 108 mmol/L (98-107); Glucose 178 mg/dL (83-110); Potassium 4.1 mmol/L (3.5-5.1); Sodium 138 mmol/L (136-145)
[2021-12-18 13:45] VITALS: BP 100/42
[2021-12-18 16:12] VITALS: TEMP 97.4
== END 2021-12-18 17:53 | disposition home or self-care (01) | DRG 872 ==
LOC: ERS 03:19 → IMCU/EMU 05:43
PROVIDERS: ADMIT Family Medicine; ATTEND Family Medicine
DX: A41.9 Sepsis, unspecified organism (principal); N17.9 Acute kidney failure, unspecified; N39.0 Urinary tract infection, site not specified; E86.0 Dehydration; R65.10 Systemic inflammatory response syndrome (SIRS) of non-infectious origin without acute organ dysfunction; E11.9 Type 2 diabetes mellitus without complications; Z66 Do not resuscitate; I95.9 Hypotension, unspecified; E03.9 Hypothyroidism, unspecified; N40.1 Benign prostatic hyperplasia with lower urinary tract symptoms; N39.498 Other specified urinary incontinence; R94.31 Abnormal electrocardiogram [ECG] [EKG]; I45.10 Unspecified right bundle-branch block; I08.3 Combined rheumatic disorders of mitral, aortic and tricuspid valves; E78.5 Hyperlipidemia, unspecified; I48.0 Paroxysmal atrial fibrillation; I10 Essential (primary) hypertension; R00.0 Tachycardia, unspecified; Z20.822 Contact with and (suspected) exposure to COVID-19; Z86.718 Personal history of other venous thrombosis and embolism; Z79.84 Long term (current) use of oral hypoglycemic drugs; Z79.899 Other long term (current) drug therapy; Z79.890 Hormone replacement therapy; Z79.01 Long term (current) use of anticoagulants; Z79.82 Long term (current) use of aspirin; Z79.2 Long term (current) use of antibiotics; Z86.73 Personal history of transient ischemic attack (TIA), and cerebral infarction without residual deficits; Z90.49 Acquired absence of other specified parts of digestive tract
CPT/HCPCS: 36415; 36416; 71045; 80048; 80053; 81001; 83036; 83605; 83735; 84439; 84443; 84481; 84484; 85025; 87077; 87086; 87186; 93005; 93306; 96365; 96376; 99292; J0282; J3475; J7070; J7120; U0002

== ENCOUNTER 2022-07-16 10:29 | Emergency (ER) | payer MEDICARE ==
[2022-07-16 11:07] LABS: #Basophils 0.1 thou/uL (0.0-0.2); #Eosinphils 0.2 thou/uL (0.0-0.7); #Monocytes 0.6 thou/uL (0.11-0.59); #Neutrophils 8.9 thou/uL (1.40-6.50); %Basophils 0.6 % (0.0-1.0); %Eosinophils 1.7 % (0.0-10.0); %Lymphocytes 23.3 % (21.0-51.0); %Monocytes 4.8 % (0.0-10.0); %Neutrophils 69.7 % (42.0-75.0); Hemoglobin 10.4 g/dL (14.0-18.0); Mean Corpuscular HGB CONC 32.3 g/dL (32.0-36.0); Mean Corpuscular Hemoglobin 29.3 pg (27.0-31.0); Mean Corpuscular Volume 90.9 fl (78.0-98.0); Platelet Count 286 10x3/uL (130-400); RBC Distribution Width 14.8 % (11.5-14.5); Red Blood Cell (RBC) Count 3.56 mill/uL (4.70-6.10); White Blood Cell (WBC) Count 12.8 10x3/uL (4.8-10.8)
[2022-07-16 11:27] LABS: ALT (SGPT) 11 U/L (8-55); AST (SGOT) 15 U/L (5-34); Albumin 3.4 g/dL (3.4-4.8); Alkaline Phosphatase 69 U/L (40-110); Anion Gap 16 mmol/L (10-20); BUN (Urea Nitrogen) 29 mg/dL (8.4-25.7); Bilirubin, Total 0.3 mg/dL (0.2-1.2); Calc. Creatinine Clearance 0 mL/min (70-130); Calcium 8.6 mg/dL (7.8-10.44); Carbon Dioxide 26 mmol/L (23-31); Chloride 107 mmol/L (98-107); Estimated GFR 45; Globulin 3.7 g/dL (2.4-3.5); Potassium 3.8 mmol/L (3.5-5.1); Protein, Total 7.1 g/dL (5.8-8.1); Sodium 145 mmol/L (136-145)
[2022-07-16 11:53] LABS: Critical Call Chemistry 1140 ERS.EGM; Glucose 35 mg/dL (83-110)
== END 2022-07-16 14:24 | disposition home or self-care (01) ==
LOC: ERS 10:29
DX: E11.65 Type 2 diabetes mellitus with hyperglycemia (principal)
CPT/HCPCS: 36415; 36416; 70450; 71045; 80053; 84484; 85025; 93005